=== PATIENT | male | born 1995 | race Caucasian/White ===

== ENCOUNTER 2018-08-23 09:46 | Emergency (ER) | payer BC ==
[2018-08-23 10:04] VITALS: BP 137/97
--- NOTE | 2018-08-23 12:44 | UC ---
Hand/Wrist HPI - HPI Summary HPI Summary: 3 days ago patient fell down the stairs and landed on his right hand. Has pain and swelling over the right thenar eminence and is worried about fracture. Denies any wrist pain. Has been wearing a thumb spica splint at home. - History Of Current Complaint Chief Complaint: UCUpperExtremity Stated Complaint: RIGHT THUMB INJURY Time Seen by Provider: 08/23/18 11:23 Hx Obtained From: Patient Onset/Duration: Sudden Onset, Lasting Days, Still Present Severity Initially: Moderate Severity Currently: Moderate Pain Intensity: 1 Pain Scale Used: 0-10 Numeric Character Of Pain: Aching Aggravating Factor(s): Movement Alleviating Factor(s): Rest Associated Signs And Symptoms: Positive: Swelling, Bruising Related History: Dominant Hand Right - Allergies/Home Medications Allergies/Adverse Reactions: Allergies Allergy/AdvReac Type Severity Reaction Status Date / Time No Known Allergies Allergy Verified 08/23/18 10:00 Home Medications: Home Medications NK [No Home Medications Reported] 08/23/18 [History Confirmed 08/23/18] PMH/Surg Hx/FS Hx/Imm Hx Previously Healthy: Yes - Surgical History Surgical History: Yes Surgery Procedure, Year, and Place: inguinial hernia repair, throat reconstructions x2. - Family History Known Family History: Positive: Non-Contributory - Social History Alcohol Use: Occasionally Substance Use Type: Marijuana Substance Use Comment - Amount & Last Used: weekly Smoking Status (MU): Never Smoked Tobacco Review of Systems All Other Systems Reviewed And Are Negative: Yes Constitutional: Positive: Negative Skin: Positive: Bruising Respiratory: Positive: Negative Cardiovascular: Positive: Negative Gastrointestinal: Positive: Negative Musculoskeletal: Positive: Arthralgia, Decreased ROM, Edema Physical Exam Triage Information Reviewed: Yes Appearance: Well-Appearing, No Pain Distress, Well-Nourished Vital Signs: Initial Vital Signs Temp 99.6 F 08/23/18 09:56 Pulse 104 08/23/18 09:56 Resp 18 08/23/18 09:56 BP 137/97 08/23/18 09:56 Pulse Ox 100 08/23/18 09:56 Vital Signs Reviewed: Yes Eyes: Positive: Conjunctiva Clear ENT: Positive: Hearing grossly normal Neck: Positive: Supple Respiratory: Positive: No respiratory distress, No accessory muscle use Cardiovascular: Positive: Pulses Normal Abdomen Description: Positive: Soft Musculoskeletal: Positive: ROM Limited @ - RIGHT THUMB, Edema @ - RIGHT THENAR EMINENCE Neurological: Positive: Alert Psychological: Positive: Age Appropriate Behavior Skin: Positive: Other - BRUISING RIGHT THENAR EMINENCE Diagnostics - Radiology RIGHT THUMB XRAYS Radiology Interpretation Completed By: Radiologist Summary of Radiographic Findings: No acute fracture or dislocation. Hand/Wrist Course/Dx - Differential Dx/Diagnosis Provider Diagnosis: Contusion of right thumb Discharge - Sign-Out/Discharge Documenting (check all that apply): Patient Departure All imaging exams completed and their final reports reviewed: Yes - Discharge Plan Condition: Stable Disposition: HOME Patient Education Materials: Contusion in Adults (ED) Referrals: No Primary Care Phys,NOPCP [Primary Care Provider] - Additional Instructions: XRAY TODAY UNREMARKABLE. SWELLING AND BRUISING SHOULD RESOLVE WITH TIME. OKAY TO USE THUMB SPICA FOR COMFORT. OTC MEDS NEEDED. FOLLOW-UP IF NOT IMPROVING OVER NEXT 1-2 WEEKS. CALL THE NUMBER BELOW FOR ASSISTANCE IN ESTABLISHING WITH A PCP An additional resource available to assist in finding the appropriate physician for your health care needs is [facility] ([facility]). You may contact them by calling [phone]. - Billing Disposition and Condition Condition: STABLE Disposition: Home
== END 2018-08-23 11:50 | disposition home or self-care (01) ==
LOC: UCEAST 09:46
DX: S60.011A Contusion of right thumb without damage to nail, initial encounter (principal); W10.9XXA Fall (on) (from) unspecified stairs and steps, initial encounter; Y92.9 Unspecified place or not applicable
CPT/HCPCS: 99211; G0463